=== PATIENT | male | born 1965 | race Caucasian/White ===

== ENCOUNTER 2023-07-23 14:24 | Observation (INO) | payer OTHER ==
[~2023-07-23] VITALS: Ht 190.5 cm; Wt 103.4 kg
[2023-07-23 15:04] LABS: BASO # 0.1 10^3/uL (0.0-0.2); BASO % 0.5 % (0.0-1.0); EOS # 0.3 10^3/uL (0.0-0.5); EOS % 2.8 % (0.0-3.0); HEMATOCRIT 47.4 % (42.0-52.0); HEMOGLOBIN 16.3 g/dl (13.5-17.5); LYMPH # 2.2 10^3/uL (1.5-5.0); LYMPH % 20.1 % (24.0-44.0); MEAN CORPUSCULAR HEMOGLOBIN 33.3 pg (27.0-33.0); MEAN CORPUSCULAR HGB CONC 34.4 g/dl (32.0-36.5); MEAN CORPUSCULAR VOLUME 96.9 fl (80.0-96.0); MONO # 0.8 10^3/uL (0.0-0.8); MONO % 7.8 % (2.0-8.0); NEUTROPHILS # 7.4 10^3/uL (1.5-8.5); NEUTROPHILS % 68.3 % (36.0-66.0); PLATELET COUNT, AUTOMATED 204 10^3/uL (150-450); RED BLOOD COUNT 4.89 10^6/uL (4.30-6.10); WHITE BLOOD COUNT 10.8 10^3/uL (4.0-10.0)
[2023-07-23 15:33] LABS: LIPASE 58 U/L (12-53)
[2023-07-23 15:34] LABS: CK-MB VALUE MASS 1.8 NG/ML (<3.6)
[2023-07-23 15:35] LABS: ALBUMIN 3.7 G/DL (3.2-5.2); ALKALINE PHOSPHATASE 66 U/L (46-116); ALT/SGPT 43 U/L (7.0-40); AST/SGOT 26 U/L (<34); BILIRUBIN,DIRECT 0.2 MG/DL (<0.4); BILIRUBIN,TOTAL 0.6 MG/DL (0.3-1.2); BLOOD UREA NITROGEN 13 MG/DL (9-23); CARBON DIOXIDE LEVEL 27 MMOL/L (20-31); CHLORIDE LEVEL 106 MMOL/L (98-107); CREATININE FOR GFR 1.01 MG/DL (0.70-1.30); GLOMERULAR FILTRATION RATE > 60.0 (>56); GLUCOSE, FASTING 101 MG/DL (60-100); POTASSIUM SERUM 4.4 MMOL/L (3.5-5.1); SODIUM LEVEL 139 MMOL/L (136-145); TOTAL PROTEIN 7.5 G/DL (5.7-8.2)
[2023-07-23] MEDS: METOPROLOL TART 25 MG TABLET PO ONE (15:36)
[2023-07-23] MEDS: NITROGLYCERIN 2% OINT 1 GM *U/D* PKT TOP ONE (15:36)
[2023-07-23] MEDS: amLODIPine 5 MG TAB PO ONE ×2 (15:36→17:20)
[2023-07-23 15:37] LABS: CPK CREATINE PHOSPHOKINASE 216 U/L (46-171); MB/CK RELATIVE INDEX 0.83 (< OR =4)
[2023-07-23 16:24] LABS: CK-MB VALUE MASS 2.3 NG/ML (<3.6)
[2023-07-23 16:26] LABS: MB/CK RELATIVE INDEX 1.1 (< OR =4)
[2023-07-23] MEDS: ASPIRIN 81MG CHEW TABLET PO ONE (17:04)
[2023-07-23] MEDS: hydrALAZINE 20MG/ML 1ML VIAL IV ONE (17:20)
[2023-07-23] MEDS ORDERED: HOME MED LIST COMPLETE! XX SCH (19:45)
[2023-07-23 22:27] VITALS: BP 181/88
[2023-07-24 02:50] VITALS: BP 168/94; TEMP 97.6; O2SAT 98
[2023-07-24] MEDS: THIAMINE 100 MG TAB PO SCH (05:36)
[2023-07-24 06:03] LABS: HEMOGLOBIN A1c 5.3 % (4.0-6.0)
[2023-07-24 06:13] LABS: BLOOD UREA NITROGEN 10 MG/DL (9-23); CALCIUM LEVEL 9.1 MG/DL (8.5-10.1); CARBON DIOXIDE LEVEL 25 MMOL/L (20-31); CHLORIDE LEVEL 105 MMOL/L (98-107); CHOLESTEROL LEVEL 225 MG/DL (<200); CHOLESTEROL RISK RATIO 4.62 (<5); CREATININE FOR GFR 0.93 MG/DL (0.70-1.30); GLOMERULAR FILTRATION RATE > 60.0 (>56); GLUCOSE, FASTING 108 MG/DL (60-100); HDL CHOLESTEROL 48.7 MG/DL (>40); LDL CHOLESTEROL 142.7 MG/DL (<100); NON-HDL-C 176.3 MG/DL; POTASSIUM SERUM 4.2 MMOL/L (3.5-5.1); SODIUM LEVEL 136 MMOL/L (136-145); TRIGLYCERIDES LEVEL 168 MG/DL (<150)
[2023-07-24 07:48] VITALS: BP 180/98; TEMP 98.1; O2SAT 96
[2023-07-24] MEDS: CHLORTHALIDONE 25 MG TAB PO SCH (08:37)
[2023-07-24] MEDS: FOLIC ACID 1MG TAB PO SCH (08:37)
[2023-07-24] MEDS: MULTIVITAMINS/MINERALS THERAP 1 TAB PO SCH (08:37)
[2023-07-24] MEDS: ROSUVASTATIN 10 MG TAB (CRESTOR) PO SCH (08:38)
[2023-07-24] MEDS ORDERED: hydroCHLOROthiazide 12.5 MG CAPSULE PO SCH (09:00)
[2023-07-24] MEDS ORDERED: ENOXAPARIN 40MG/0.4ML SYRINGE (J1650 PER 10MG) SC SCH (09:00)
[2023-07-24] MEDS ORDERED: CRES40TA PO (10:17)
[2023-07-24] MEDS ORDERED: CHLO25TA PO (10:17)
[2023-07-24] MEDS ORDERED: AMLO1TAB25 PO (10:17)
[2023-07-24 10:29] VITALS: BP 168/92
== END 2023-07-24 11:26 | disposition home or self-care (01) ==
LOC: M ED 14:24 → M ED INP 14:25 → M PCU 07-24 02:49
PROVIDERS: ADMIT Internal Medicine; ATTEND Internal Medicine
DX: I16.0 Hypertensive urgency (principal); F10.20 Alcohol dependence, uncomplicated; F17.210 Nicotine dependence, cigarettes, uncomplicated; R74.8 Abnormal levels of other serum enzymes; M54.2 Cervicalgia
CPT/HCPCS: 36415; 71045; 80048; 80061; 80076; 82550; 82553; 83036; 83690; 84484; 85025; 93005; 93041; 94760; 96374; 99285; J0360

== ENCOUNTER → 2023-08-13 | Outpatient (REF) | payer OTHER ==
[~2023-08-13] MED LIST: AMLO1TAB25 PO; CHLO25TA PO; CRES40TA PO
[2023-08-13 14:17] LABS: BASO # 0.1 10^3/uL (0.0-0.2); BASO % 0.7 % (0.0-1.0); EOS # 0.4 10^3/uL (0.0-0.5); EOS % 3.4 % (0.0-3.0); HEMATOCRIT 46.2 % (42.0-52.0); HEMOGLOBIN 15.7 g/dl (13.5-17.5); LYMPH # 1.8 10^3/uL (1.5-5.0); LYMPH % 13.8 % (24.0-44.0); MEAN CORPUSCULAR HEMOGLOBIN 32.4 pg (27.0-33.0); MEAN CORPUSCULAR VOLUME 95.3 fl (80.0-96.0); MONO % 7.7 % (2.0-8.0); NEUTROPHILS # 9.4 10^3/uL (1.5-8.5); NEUTROPHILS % 73.6 % (36.0-66.0); PLATELET COUNT, AUTOMATED 293 10^3/uL (150-450); RED BLOOD COUNT 4.85 10^6/uL (4.30-6.10); WHITE BLOOD COUNT 12.8 10^3/uL (4.0-10.0)
[2023-08-13 14:31] LABS: LIPASE 54 U/L (12-53)
[2023-08-13 14:33] LABS: ALBUMIN 3.4 G/DL (3.2-5.2); ALKALINE PHOSPHATASE 130 U/L (46-116); ALT/SGPT 98 U/L (7.0-40); AST/SGOT 48 U/L (<34); BILIRUBIN,TOTAL 0.4 MG/DL (0.3-1.2); BLOOD UREA NITROGEN 13 MG/DL (9-23); CALCIUM LEVEL 9.5 MG/DL (8.5-10.1); CARBON DIOXIDE LEVEL 30 MMOL/L (20-31); CHLORIDE LEVEL 100 MMOL/L (98-107); CREATININE FOR GFR 0.89 MG/DL (0.70-1.30); GLOMERULAR FILTRATION RATE > 60.0 (>56); GLUCOSE, FASTING 100 MG/DL (60-100); POTASSIUM SERUM 3.8 MMOL/L (3.5-5.1); SODIUM LEVEL 136 MMOL/L (136-145); TOTAL PROTEIN 7.7 G/DL (5.7-8.2)
[2023-08-13 14:43] LABS: APPEARANCE, URINE CLEAR (CLEAR); BACTERIA, URINE AUTO NEGATIVE (NEGATIVE); BILIRUBIN, URINE AUTO NEGATIVE (NEGATIVE); BLOOD, URINE BLOOD NEGATIVE (NEGATIVE); COLOR, URINE STRAW (YELLOW); GLUCOSE, URINE (UA) AUTO NEGATIVE (NEGATIVE); KETONE, URINE AUTO NEGATIVE (NEGATIVE); LEUKOCYTE ESTERASE, URINE AUTO NEGATIVE (NEGATIVE); NITRITE, URINE AUTO NEGATIVE (NEGATIVE); PROTEIN, URINE AUTO NEGATIVE (NEGATIVE); RBC, URINE AUTO 0 /HPF (0-3); SPECIFIC GRAVITY URINE AUTO 1.003 (1.002-1.035); SQUAMOUS EPITHELIAL CELL UR AU 0 /HPF (0-6); UROBILINOGEN, URINE AUTO 0.2 mg/dL (0.0-2.0); WBC, URINE AUTO 0 /HPF (0-3)
== END ==
LOC: M LAB REF 12:13
PROVIDERS: ATTEND Physician Assistant
DX: R10.9 Unspecified abdominal pain (principal)